=== PATIENT | female | born 1985 | race Caucasian/White ===

== ENCOUNTER 2017-08-23 12:35 | Emergency (ER) | payer BC ==
--- NOTE | 2017-08-23 12:46 | ER Document Report ---
ED Seizure - General Mode of Arrival: Stretcher Information source: Patient, Relative - , Friend - coworker <ARSALAN SALAS - Last Filed: 08/23/17 15:08> <SARAH MARTINS - Last Filed: 08/24/17 06:32> - General Chief Complaint: Seizure Stated Complaint: POSSIBLE SEIZURE Time Seen by Provider: 08/23/17 12:43 Notes: Patient is a 31-year-old female who presents to the emergency department today for seizure-like activity. The patient's coworkers report seeing the patient run by them on the way to the restroom. Coworkers state they heard the patient fall and witnessed what is described as tonic-clonic seizure activity. According to the patient's , the patient has had a brain tumor removed in the past but he was unable to remember specifics on the procedure. states the patient has had seizures in the past. states that at one point it was thought that her seizures were caused by "drinking too much water and lowering her sodium too much". History is limited. 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 Lives with: Family Family History: Reviewed & Not Pertinent Neurological Medical History: Reports: Hx Seizures Past Surgical History: Reports: Other - Hx of brain tumor removal <ARSALAN SALAS - Last Filed: 08/23/17 15:08> Review of Systems - Review of Systems -: Yes ROS unobtainable due to patient's medical condition - ROS given by facility staff members who witnessed seizure like activity Neurological/Psychological: See HPI, Seizure <ARSALAN SALAS - Last Filed: 08/23/17 15:08> Physical Exam <ARSALAN SALAS - Last Filed: 08/23/17 15:08> <SARAH MARTINS - Last Filed: 08/24/17 06:32> - Vital signs Vitals: Resp BP Pulse Ox 20 115/69 95 08/23/17 12:38 08/23/17 12:38 08/23/17 12:38 - Notes Notes: Physical Exam: General: Initially unresponsive during seizure-like activity, slowly became aroused and answered questions appropriately after 15-20 minutes after seizure like activity subsided. HEENT: Normocephalic. Atraumatic. PERRL. Extraocular movements intact. Oropharynx clear. No hematoma or head lacerations. Neck: Supple. Non-tender. Respiratory: No respiratory distress. Clear and equal breath sounds bilaterally. Cardiovascular: Tachycardic, regular rhythm. Abdominal: Normal Inspection. Non-tender. No distension. Normal Bowel Sounds. Back: Non-tender. No deformity or step off. Extremities: Moves all four extremities. Upper extremities: Normal inspection. Normal ROM. Lower extremities: Normal inspection. No edema. Normal ROM. Neurological: See general section, initially not oriented to person, place, or time, now alert and oriented x4. Psychological: Normal affect. Normal Mood. Skin: Warm. Dry. Normal color. (ARSALAN SALAS) Course - Laboratory Result Diagrams: 08/23/17 13:19 08/23/17 13:19 <ARSALAN SALAS - Last Filed: 08/23/17 15:08> - Laboratory Result Diagrams: 08/23/17 13:19 08/23/17 13:19 <SRAAH MARTINS - Last Filed: 08/24/17 06:32> - Re-evaluation Re-evalutation: 08/23/17 16:22 All labs within normal limits are nonsignificant mildly elevated TSH. Discussed CT and MRI with radiologist Dr. Alicea. No acute findings. Patient is returned back to baseline this time alert oriented have a long conversation with there are no acute distress. Will draw cortisol and free T3 and T4 due to mildly elevated TSH. Return precautions were provided will not place patient on any antiepileptics at this time. I discussed driving cautions and needs to be seen by neurologist prior to driving. (SARAH MARTINS) - Vital Signs Vital signs: Temp Pulse Resp BP Pulse Ox 98.3 F 96 17 123/84 99 08/23/17 16:39 08/23/17 16:39 08/23/17 16:39 08/23/17 16:39 08/23/17 16:39 - Laboratory Laboratory results interpreted by me: 08/23/17 08/23/17 08/23/17 12:35 13:19 13:19 Carbon Dioxide 21 L BUN 24 H POC Glucose 122 H AST 38 H TSH 5.80 H Urine Ascorbic Acid 08/23/17 08/23/17 13:19 14:08 Carbon Dioxide BUN POC Glucose 115 H AST TSH Urine Ascorbic Acid 40 H Discharge <ARSALAN SALAS - Last Filed: 08/23/17 15:08> <SARAH MARTINS - Last Filed: 08/24/17 06:32> - Discharge Clinical Impression: Seizure Disposition: HOME, SELF-CARE Instructions: New Seizure ([facility]) Additional Instructions: Please follow-up with neurology for evaluation. You should see a neurologist prior to driving. Forms: Return to Work Scribe Attestation: 08/24/17 06:28 I personally performed the services described documentation, reviewed and edited the documentation which was dictated to describe my presence, and it accurately records my words and actions. (SARAH MARTINS) Scribe Documentation - Scribe Written by Scribe:: Emanuel Ludwig, 08/23/2017 1517 acting as scribe for :: Garrett <ARSALAN SALAS - Last Filed: 08/23/17 15:08>
[2017-08-23] MEDS ORDERED: RINGERS SOLUTION,LACTATED 1,000 ML IV ONE (12:53)
[2017-08-23 13:42] LABS: ABSOLUTE BASOPHILS # (AUTO) 0.1 10^3/uL (0.0-0.2); ABSOLUTE EOSINOPHILS # (AUTO) 0.1 10^3/uL (0.0-0.6); ABSOLUTE LYMPHOCYTES (AUTO) 2.3 10^3/uL (0.5-4.7); ABSOLUTE MONOCYTES (AUTO) 0.7 10^3/uL (0.1-1.4); BASOPHILS % (AUTO) 0.9 % (0-2); HEMATOCRIT 42.6 % (36.0-47.0); HEMOGLOBIN 14.6 g/dL (12.0-15.5); LYMPHOCYTES % (AUTO) 25.3 % (13-45); MEAN CORPUSCULAR HEMOGLOBIN 30.9 pg (27.0-33.4); MEAN CORPUSCULAR HGB CONC 34.2 g/dL (32.0-36.0); MEAN CORPUSCULAR VOLUME 91 fl (80-97); MONOCYTES % (AUTO) 7.8 % (3-13); PLATELET COUNT 272 10^3/uL (150-450); RED BLOOD COUNT 4.71 10^6/uL (3.72-5.28); RED CELL DISTRIBUTION WIDTH 12.2 % (11.5-14.0); TOTAL CELLS COUNTED % (AUTO) 100 %; WHITE BLOOD COUNT 9.2 10^3/uL (4.0-10.5)
[2017-08-23 13:58] LABS: ALANINE AMINOTRANSFERASE 41 U/L (9-52); ALBUMIN 4.9 g/dL (3.5-5.0); ALKALINE PHOSPHATASE 47 U/L (38-126); ANION GAP 17 (5-19); ASPARTATE AMINO TRANSFERASE 38 U/L (14-36); BILIRUBIN,DIRECT 0.3 mg/dL (0.0-0.4); BILIRUBIN,TOTAL 0.4 mg/dL (0.2-1.3); BLOOD UREA NITROGEN 24 mg/dL (7-20); CALCIUM 10.2 mg/dL (8.4-10.2); CARBON DIOXIDE 21 mmol/L (22-30); CHLORIDE 100 mmol/L (98-107); GLUCOSE 104 mg/dL (75-110); POTASSIUM 4.3 mmol/L (3.6-5.0); SODIUM 138.3 mmol/L (137-145); TOTAL PROTEIN 8.2 g/dL (6.3-8.2)
--- NOTE | 2017-08-23 14:13 | RADIOLOGY REPORT (SQ) ---
EXAM DESCRIPTION: CT HEAD WITHOUT COMPLETED DATE/TIME: 08/23/2017 1:59 pm REASON FOR STUDY: seizure COMPARISON: None. TECHNIQUE: Axial images acquired through the brain without intravenous contrast. Images reviewed wi th bone, brain and subdural windows. Additional sagittal and coronal reconstructions were generated. Images stored on PACS. All CT scanners at this facility use dose modulation, iterative reconstruction, and/or weight based d osing when appropriate to reduce radiation dose to as low as reasonably achievable (ALARA). [facility]: Dose Right [facility]: CareDose [facility]: Dose Right [facility]: Teradose 4D [facility]: [employer] RADIATION DOSE: CT Rad equipment meets quality standard of care and radiation dose reduction techniq ues were employed. CTDIvol: 53.2 mGy. DLP: 1070 mGy-cm. mGy. LIMITATIONS: Artifact from hair pins FINDINGS: VENTRICLES: Normal size and contour. CEREBRUM: No CT evidence of acute large territory ischemic change, acute intracranial hemorrhage, mas s effect, or midline shift. Patient has an old left frontoparietal craniotomy. There is a 3 x 2.5 cm area of cortical and subcor tical white matter encephalomalacia in the left frontal lobe. CEREBELLUM: No masses. No hemorrhage. No alteration of density. No evidence for acute infarction. EXTRAAXIAL SPACES: No fluid collections. No masses. ORBITS AND GLOBE: No intra- or extraconal masses. Normal contour of globe without masses. CALVARIUM: No acute fracture. Old left frontoparietal craniotomy PARANASAL SINUSES: No fluid or mucosal thickening. SOFT TISSUES: No mass or hematoma. OTHER: No other significant finding. IMPRESSION: Old left frontal craniotomy with 3 x 2.5 cm area of cortical and subcortical white matte r left frontal encephalomalacia. No acute ischemic change. No acute intracranial hemorrhage, mass effect, or midline shift. Results discussed with Dr. Tucker in the emergency room EVIDENCE OF ACUTE STROKE: NO. COMMENT: Quality ID # [id number]: Final reports with documentation of one or more dose reduction techniques (e.g., Automated exposure control, adjustment of the mA and/or kV according to patient size, use of iterative reconstruction technique) TECHNICAL DOCUMENTATION: JOB ID: [id number] [employer]- All Rights Reserved Reading location - IP/workstation name: [facility]
[2017-08-23 14:54] LABS: APPEARANCE,URINE SLIGHTLY-CLOUDY; BILIRUBIN,URINE NEGATIVE (NEGATIVE); COLOR,URINE YELLOW; GLUCOSE, URINE NEGATIVE (NEGATIVE); KETONES,URINE NEGATIVE (NEGATIVE); LEUKOCYTE ESTERASE,URINE NEGATIVE (NEGATIVE); NITRITE,URINE NEGATIVE (NEGATIVE); PROTEIN,URINE NEGATIVE (NEGATIVE); URINE SPECIFIC GRAVITY 1.016; UROBILINOGEN,URINE NEGATIVE mg/dL (<2.0)
--- NOTE | 2017-08-23 16:22 | RADIOLOGY REPORT (SQ) ---
EXAM DESCRIPTION: MRI HEAD COMBO COMPLETED DATE/TIME: 08/23/2017 3:22 pm REASON FOR STUDY: seizure, hx of brain tumor COMPARISON: CT brain 08/23/2017 TECHNIQUE: Multiplanar imaging includes noncontrasted T1, T2, FLAIR, diffusion with ADC map and post gadolinium contrast T1 sequences. Images stored on PACS. CONTRAST TYPE AND DOSE: 10 mL Prohance. RENAL FUNCTION: GFR > 60. LIMITATIONS: None. FINDINGS: PITUITARY AND MIDLINE STRUCTURES: Unremarkable. CSF SPACES: Normal in size and contour. No hemorrhage. CEREBRUM: ANATOMY: Patient has an old left craniotomy, and a postoperative focus of encephalomalacia in the ant erior left frontal lobe cortex and subcortical white matter about 3 x 2.5 cm in size. There is minim al gliosis on FLAIR images deep to the operative cavity. No abnormal contrast enhancement. No hemor rhage. No mass effect. No midline shift. No diffusion-weighted signal abnormalities worrisome for acute ischemic change. Normal vascular flow voids. Pituitary fossa normal. POSTERIOR FOSSA: No signal alteration. No hemorrhage. No edema, masses, or mass effect. Internal frank tory canals, cerebellopontine angles, mastoids normal. No enhancing lesions. No abnormal enhancement post contrast. DIFFUSION IMAGING: Negative for acute or subacute infarction. ORBITS: No masses. Globes normal. PARANASAL SINUSES: No fluid levels. Mucosa normal. OTHER: No other significant finding. IMPRESSION: Postoperative encephalomalacia in the left frontal lobe. Otherwise unremarkable study. Findings discussed with Dr. Tucker in the emergency room EVIDENCE OF ACUTE STROKE: NO. TECHNICAL DOCUMENTATION: JOB ID: [id number] [employer]- All Rights Reserved Reading location - IP/workstation name: [email or web address]
[2017-08-23 16:41] VITALS: BP 123/84
[2017-08-24 07:21] LABS: FREE T3 4.13 pg/mL (2.77-5.27); FREE T4 (FREE THYROXINE) 1.07 ng/dL (0.78-2.19)
--- NOTE | 2017-08-24 07:47 | EKG REPORT ---
SEVERITY:- OTHERWISE NORMAL ECG - SINUS TACHYCARDIA : Confirmed by: Katherin Wilkes MD 24-Aug-2017 07:46:09
== END 2017-08-23 16:42 | disposition home or self-care (01) ==
LOC: ER 12:35
DX: R56.9 Unspecified convulsions (principal); R41.82 Altered mental status, unspecified; W19.XXXA Unspecified fall, initial encounter; Z98.890 Other specified postprocedural states
CPT/HCPCS: 99284; 96360; 36415; 84439; 82962; 83735; 84443; 84703; 85025; 80053; 81001; 84481; 70553; 70450; 93005; 93010; J7120

== ENCOUNTER 2017-10-11 14:17 | Emergency (ER) | payer OTHER, BC ==
[2017-10-11] MEDS ORDERED: LORAZEPAM INJ 2 MG/1 ML VIAL IM ONE (14:40)
[2017-10-11 14:57] LABS: ABSOLUTE BASOPHILS # (AUTO) 0.1 10^3/uL (0.0-0.2); ABSOLUTE EOSINOPHILS # (AUTO) 0.2 10^3/uL (0.0-0.6); ABSOLUTE MONOCYTES (AUTO) 1.3 10^3/uL (0.1-1.4); ABSOLUTE NEUT (AUTO) 8.6 10^3/uL (1.7-8.2); BASOPHILS % (AUTO) 0.8 % (0-2); EOSINOPHILS % (AUTO) 1.2 % (0-6); HEMOGLOBIN 14.8 g/dL (12.0-15.5); LYMPHOCYTES % (AUTO) 36.8 % (13-45); MEAN CORPUSCULAR HEMOGLOBIN 31.2 pg (27.0-33.4); MEAN CORPUSCULAR HGB CONC 33.5 g/dL (32.0-36.0); MEAN CORPUSCULAR VOLUME 93 fl (80-97); PLATELET COUNT 449 10^3/uL (150-450); RED BLOOD COUNT 4.72 10^6/uL (3.72-5.28); RED CELL DISTRIBUTION WIDTH 12.6 % (11.5-14.0); SEGMENTED NEUTROPHILS % (AUTO) 53.2 % (42-78); TOTAL CELLS COUNTED % (AUTO) 100 %; WHITE BLOOD COUNT 16.2 10^3/uL (4.0-10.5)
[2017-10-11 15:21] LABS: BLOOD UREA NITROGEN 19 mg/dL (7-20); CALCIUM 9.8 mg/dL (8.4-10.2); GLUCOSE 124 mg/dL (75-110); POTASSIUM 4.1 mmol/L (3.6-5.0)
[2017-10-11 15:27] LABS: CARBON DIOXIDE 15 mmol/L (22-30); CHLORIDE 100 mmol/L (98-107); SODIUM 141.2 mmol/L (137-145)
--- NOTE | 2017-10-11 15:57 | RADIOLOGY REPORT (SQ) ---
EXAM DESCRIPTION: CT HEAD WITHOUT COMPLETED DATE/TIME: 10/11/2017 3:44 pm REASON FOR STUDY: fall COMPARISON: MRI brain 08/23/2017 CT brain 08/23/2017 TECHNIQUE: Axial images acquired through the brain without intravenous contrast. Images reviewed wi th bone, brain and subdural windows. Additional sagittal and coronal reconstructions were generated. Images stored on PACS. All CT scanners at this facility use dose modulation, iterative reconstruction, and/or weight based d osing when appropriate to reduce radiation dose to as low as reasonably achievable (ALARA). [facility]: Dose Right [facility]: CareDose [facility]: Dose Right [facility]: Teradose 4D [facility]: [employer]AP RADIATION DOSE: 53 mGy. LIMITATIONS: None. FINDINGS: VENTRICLES: Normal size and contour. CEREBRUM: No CT evidence of acute large territory ischemic change, acute intracranial hemorrhage, mas s effect, or midline shift. Patient has an old left frontoparietal convexity with a stable 3 x 2.5 c m area of encephalomalacia over the left frontal cortex and subcortical white matter. CEREBELLUM: No masses. No hemorrhage. No alteration of density. No evidence for acute infarction. EXTRAAXIAL SPACES: No fluid collections. No masses. ORBITS AND GLOBE: No intra- or extraconal masses. Normal contour of globe without masses. CALVARIUM: No fracture. PARANASAL SINUSES: No fluid or mucosal thickening. SOFT TISSUES: Right parietal scalp hematoma without underlying skull fracture or acute intracranial h emorrhage OTHER: No other significant finding. IMPRESSION: Right parietal scalp hematoma without underlying skull fracture or acute intracranial he morrhage Old craniotomy with left frontal encephalomalacia, stable EVIDENCE OF ACUTE STROKE: NO. COMMENT: Quality ID # [id number]: Final reports with documentation of one or more dose reduction techniques (e.g., Automated exposure control, adjustment of the mA and/or kV according to patient size, use of iterative reconstruction technique) TECHNICAL DOCUMENTATION: JOB ID: [id number] [employer]- All Rights Reserved Reading location - IP/workstation name: [email or web address]
--- NOTE | 2017-10-11 15:59 | ER Document Report ---
ED General - General Chief Complaint: Seizure Stated Complaint: SEIZURE Time Seen by Provider: 10/11/17 14:29 Mode of Arrival: Ambulatory Information source: Patient, [facility] Records Notes: 32-year-old female with history of one previous seizure was working today when she was found down, unconscious and bleeding from the head. Mild shaking which resolved quickly before medication. Patient did become confused, mildly combative. TRAVEL OUTSIDE OF THE [place] IN LAST 30 DAYS: No - HPI Onset: Just prior to arrival Onset/Duration: Sudden Associated symptoms: None Exacerbated by: Denies Relieved by: Denies Similar symptoms previously: Yes Recently seen / treated by doctor: Yes - Related Data Allergies/Adverse Reactions: No Known Allergies Allergy (Verified 10/11/17 14:46) Past Medical History - General Information source: Patient, [facility] Records - Social History Smoking Status: Never Smoker Frequency of alcohol use: None Drug Abuse: None Lives with: Spouse/Significant other Family History: Reviewed & Not Pertinent Patient has suicidal ideation: No Patient has homicidal ideation: No Neurological Medical History: Reports: Hx Seizures Renal/ Medical History: Denies: Hx Peritoneal Dialysis Past Surgical History: Reports: Other - Hx of brain tumor removal Review of Systems - Review of Systems Notes: REVIEW OF SYSTEMS: CONSTITUTIONAL : Denies fever, chills, or sweats. Denies recent illness. Denies weight loss, recent hospitalizations. EENT: Denies visual changes, eye pain. Denies nasal or sinus congestion or discharge. Denies sore throat, oral lesions, difficulty swallowing. CARDIOVASCULAR: Denies chest pain. Denies palpitations. Denies lower extremity edema. RESPIRATORY: Denies cough, cold, or chest congestion. Denies shortness of breath, wheezing. GASTROINTESTINAL: Denies abdominal pain or distention. Denies nausea, vomiting , or diarrhea. Denies blood in vomitus, stools, or per rectum. Denies black, tarry stools. Denies constipation. GENITOURINARY: Denies difficulty urinating, painful urination, frequency, blood in urine, or vaginal discharge. MUSCULOSKELETAL: Denies back or neck pain or stiffness. Denies joint pain or swelling. SKIN: Denies rash, lesions or sores. HEMATOLOGIC : Denies easy bruising or bleeding. LYMPHATIC: Denies swollen glands. NEUROLOGICAL: Denies confusion or altered mental status. Denies passing out or loss of consciousness. Denies dizziness or lightheadedness. Denies weakness or paralysis. Denies problems difficulty with ambulation, slurred speech. Denies sensory loss, numbness, or tingling. PSYCHIATRIC: Denies anxiety or stress. Denies depression, suicidal ideation, or homicidal ideation. Denies visual or auditory hallucinations. Physical Exam - Vital signs Vitals: Pulse BP Pulse Ox 134 H 144/89 H 93 10/11/17 14:27 10/11/17 14:27 10/11/17 14:27 Interpretation: Hypertensive, Tachycardic - Notes Notes: PHYSICAL EXAMINATION: GENERAL: Agitated, confused c collar in place. HEAD: 5 cm laceration to the right parietal scalp EYES: Pupils equal round and reactive to light, extraocular movements intact, sclera anicteric, conjunctiva are normal. ENT: Nares patent, oropharynx clear without exudates. Moist mucous membranes. No hemanotympanum . No blood in nares. No dental fracture NECK: Normal range of motion, supple without lymphadenopathy. Trachea midline LUNGS: Breath sounds clear to auscultation bilaterally and equal. No wheezes rales or rhonchi. HEART: Tachycardic, regular rhythm without murmurs. Pulses intact all throughout. ABDOMEN: Soft, nontender, nondistended abdomen. No guarding, no rebound. No masses appreciated. Musculoskeletal: Normal range of motion, no pitting or edema. No cyanosis. Hip non tender, stable. NEUROLOGICAL: Initially neuro exam unable to be performed secondary to patient' s confusion. Repeat exam shows cranial nerves grossly intact. Normal speech, normal gait. Normal sensory, motor, and reflex exams. PSYCH: Confused SKIN: 5 cm parietal scalp laceration Course - Re-evaluation Re-evalutation: Laboratory 10/11/17 10/11/17 14:40 14:40 WBC 16.2 H RBC 4.72 Hgb 14.8 Hct 44.0 MCV 93 MCH 31.2 MCHC 33.5 RDW 12.6 Plt Count 449 Seg Neutrophils % 53.2 Lymphocytes % 36.8 Monocytes % 8.0 Eosinophils % 1.2 Basophils % 0.8 Absolute Neutrophils 8.6 H Absolute Lymphocytes 6.0 H Absolute Monocytes 1.3 Absolute Eosinophils 0.2 Absolute Basophils 0.1 Sodium 141.2 Potassium 4.1 Chloride 100 Carbon Dioxide 15 L Anion Gap 26 H BUN 19 Creatinine 0.84 Est GFR ( Amer) > 60 Est GFR (Non-Af Amer) > 60 Glucose 124 H Calcium 9.8 Beta HCG, Quant < 2.39 Total Beta HCG NEGATIVE Head CT 10/11/17 14:40 IMPRESSION: Right parietal scalp hematoma without underlying skull fracture or acute intracranial hemorrhage Old craniotomy with left frontal encephalomalacia, stable EVIDENCE OF ACUTE STROKE: NO. 10/12/17 09:39 32-year-old female who was at work when she was found down, unconscious with head injury. She was incontinent of urine. Patient awoke independently without intervention and was mildly agitated. 2 mg of IM Ativan was administered. Exam significant for a 5 cm laceration to her scalp. Patient quickly returned to baseline. CAT scan was obtained and showed no intracranial hemorrhage but a large hematoma. Laceration repair was performed with jack. 5 jack were placed after thorough irrigation of the wound. I did speak to the patient and her at length about my concern for her driving. We did discuss medication which she states her doctor told her she does not need at this time. She states she believes this is secondary to her waiting too long to eat and working too many days consistently. I did advised her to not return to work tomorrow and that she should be seen by her physician before returning to work. 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 Patient provided the opportunity to ask questions, and express concerns. Discharge instructions discussed. Patient is agreeable with discharge home. Return indications explained and discussed with the patient who displays understanding. Patient encouraged to return to the emergency department immediately with any concerns. 10/12/17 09:41 10/12/17 09:43 - Vital Signs Vital signs: Temp Pulse Resp BP Pulse Ox 122 H 23 H 127/89 H 98 10/11/17 15:12 10/11/17 15:35 10/11/17 15:46 10/11/17 15:12 - Laboratory Result Diagrams: 10/11/17 14:40 10/11/17 14:40 Laboratory results interpreted by me: 10/11/17 10/11/17 14:40 14:40 WBC 16.2 H Absolute Neutrophils 8.6 H Absolute Lymphocytes 6.0 H Carbon Dioxide 15 L Anion Gap 26 H Glucose 124 H - Diagnostic Test Radiology reviewed: Image reviewed, Reports reviewed - EKG Interpretation by Me Rate: Tachycardia Procedures - Laceration/Wound Repair Right Head Time completed: 14:30 Wound length (cm): 5 Wound's Depth, Shape: Linear Laceration pre-procedure: Shur-Clens applied Volume Anesthetic (mLs): 0 Wound explored: Clean, No foreign body removed Irrigated w/ Saline (mLs): 1,000 Wound Debrided: Minimal Wound Repaired With: Jack - 5 jack placed Post-procedure wound care: Sterile dressing applied Complications: No Discharge - Discharge Clinical Impression: Seizure Scalp laceration Qualifiers: Encounter type: initial encounter Qualified Code(s): S01.01XA - Laceration without foreign body of scalp, initial encounter Head injury due to trauma Qualifiers: Encounter type: initial encounter Qualified Code(s): S09.90XA - Unspecified injury of head, initial encounter Disposition: HOME, SELF-CARE Instructions: Antibiotic Ointment Protection ([facility]), Laceration Care ([facility]), New Seizure ([facility]) Additional Instructions: Remove jack in [address] until seen by pcp.
[2017-10-11 16:00] VITALS: BP 127/89
[2017-10-11 16:08] LABS: ANION GAP 26 (5-19)
== END 2017-10-11 16:04 | disposition home or self-care (01) ==
LOC: ER 14:17
PROC: 0HQ0XZZ Repair Scalp Skin, External Approach (ICD-10-PCS; principal; 2017-10-11)
DX: S01.01XA Laceration without foreign body of scalp, initial encounter (principal); S09.90XA Unspecified injury of head, initial encounter; R56.9 Unspecified convulsions; W19.XXXA Unspecified fall, initial encounter
CPT/HCPCS: 99284; 96372; 36415; 82962; 84702; 85025; 80048; 70450; 12002; J2060

== ENCOUNTER 2019-05-16 18:47 | Emergency (ER) | payer BC, OTHER ==
[2019-05-16] MEDS ORDERED: LIDOCAINE 4%/TETRACAINE 0.5%/EPI 0.18% 5 ML TOPICAL SOLN TOP ONE (19:26)
--- NOTE | 2019-05-16 19:28 | ER Document Report ---
ED General - General Chief Complaint: Seizure Stated Complaint: POSSIBLE SEIZURE Time Seen by Provider: 05/16/19 18:48 TRAVEL OUTSIDE OF THE [place] IN LAST 30 DAYS: No - HPI Notes: Patient is a 33-year-old female who presents to the emergency department for evaluation. 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 She has a known history of seizures. She is taking Tegretol 100 mg daily. This is only for the last month. She supposed to follow-up with neurology. She denies any recent head injuries. She denied any prodromal symptoms. She does admit to being under increased stress, has not eaten very much today. She states that sometimes that contributes to her seizures. She states her last tetanus shot was within the year. She denies any significant pain or complaints at this time, besides a mild headache in the right side of her head. She was incontinent of urine. - Related Data Allergies/Adverse Reactions: No Known Allergies Allergy (Verified 10/11/17 14:46) Home Medications: Tegretol 100 mg daily Past Medical History - General Information source: Patient - Social History Smoking Status: Never Smoker Family History: Reviewed & Not Pertinent Neurological Medical History: Reports: Hx Seizures Renal/ Medical History: Denies: Hx Peritoneal Dialysis Past Surgical History: Reports: Hx Neurologic Surgery - Removal of brain tumor Review of Systems - Review of Systems Skin: See HPI Neurological/Psychological: See HPI -: Yes All other systems reviewed and negative Physical Exam - Notes Notes: This is a very pleasant 33-year-old female who appears her stated age in no acute distress. Initially I saw her in postictal state, very confused, but moving all 4 extremity spontaneously. Repeat evaluation was after CT scan. Head is normocephalic. She has a right parietal scalp hematoma with stellate laceration, avulsion of scalp skin noted to the central aspect of the lesion. No active bleeding, no clear foreign body. Pupils are equal round, reactive to light. Onychosis moist. Uvula is midline. Heart is regular rate and rhythm, lungs are crusting bilaterally. Abdomen soft, nontender, active bowel sounds. Extremities without cyanosis or clubbing. Patient is awake and alert, moves all 4 extremity spontaneously. No gross facial asymmetry. Course - Re-evaluation Re-evalutation: 05/16/19 19:27 Patient presents emergency department for evaluation. She was placed in a c- collar before being moved. She had CT scan of the head and neck. Preliminary read of the cervical spine CT by myself showed no signs of fracture or misalignment. Patient was back to neurological baseline I did remove the collar. In midline stabilization was maintained and she had no midline tenderness or step-off. No paraspinal musculature tenderness appreciated. Full range of motion did not elicit pain. Her C-spine was cleared and the collar was removed. Attention now being turned to the scalp laceration. Is been cleansed, let placed. I will place jack to approximate the wound, care plan was discussed with the patient. She is stable at this time, we will continue to monitor. 05/16/19 20:22 CT scan of the head and neck were ordered and found to be unremarkable. Stellate wound was approximated with 2 jack. No active bleeding. Please see separate procedure note. Will discharge patient home. She is to follow-up with primary care for staple remover in 7 days, follow-up with neurology as well. Return to the ED with worsening. Procedures - Laceration/Wound Repair Right Head Wound length (cm): 4 Wound's Depth, Shape: Superficial, Irregular Laceration pre-procedure: Chloraprep applied Wound explored: Clean, No foreign body removed Wound Repaired With: Jack - 2 Discharge - Discharge Clinical Impression: Seizure Scalp laceration Qualifiers: Encounter type: initial encounter Qualified Code(s): S01.01XA - Laceration without foreign body of scalp, initial encounter Condition: Stable Disposition: HOME, SELF-CARE Instructions: Antibiotic Ointment Protection ([facility]), Laceration Care ([facility]), Seizure, Known Epileptic ([facility]) Additional Instructions: Follow-up with neurology and primary care next week. Have jack removed in 5 to 7 days. Keep wound clean with soap and water. Return to the emergency department worsening or new concerning symptoms of any sort.
--- NOTE | 2019-05-16 19:30 | RADIOLOGY REPORT (SQ) ---
EXAM DESCRIPTION: CT HEAD WITHOUT COMPLETED DATE/TIME: 05/16/2019 6:11 pm REASON FOR STUDY: head injury, altered mental status COMPARISON: 10/11/2017. TECHNIQUE: Axial images acquired through the brain without intravenous contrast. Images reviewed wi th bone, brain and subdural windows. Additional sagittal and coronal reconstructions were generated. Images stored on PACS. All CT scanners at this facility use dose modulation, iterative reconstruction, and/or weight based d osing when appropriate to reduce radiation dose to as low as reasonably achievable (ALARA). [facility]: Dose Right [facility]: CareDose [facility]: Dose Right [facility]: Teradose 4D [facility]: [employer] RADIATION DOSE: mGy. LIMITATIONS: None. FINDINGS: VENTRICLES: Normal size and contour. CEREBRUM: No masses. No hemorrhage. No midline shift. No evidence for acute infarction. 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 Normal clark-white matter differentiat ion. CEREBELLUM: No masses. No hemorrhage. No alteration of density. No evidence for acute infarction. EXTRAAXIAL SPACES: No fluid collections. No masses. ORBITS AND GLOBE: No intra- or extraconal masses. Normal contour of globe without masses. CALVARIUM: No fracture. PARANASAL SINUSES: No fluid or mucosal thickening. SOFT TISSUES: No mass or hematoma. OTHER: No other significant finding. IMPRESSION: No significant interval change. No acute intracranial hemorrhage, mass, or evidence of acute territorial infarct. EVIDENCE OF ACUTE STROKE: NO. COMMENT: Quality ID # 436: Final reports with documentation of one or more dose reduction techniques (e.g., Automated exposure control, adjustment of the mA and/or kV according to patient size, use of iterative reconstruction technique) TECHNICAL DOCUMENTATION: JOB ID: [id number] 2010 [employer]- All Rights Reserved Reading location - IP/workstation name: [email or web address]
--- NOTE | 2019-05-16 19:31 | RADIOLOGY REPORT (SQ) ---
EXAM DESCRIPTION: CT CERVICAL SPINE WITHOUT COMPLETED DATE/TIME: 05/16/2019 6:11 pm REASON FOR STUDY: head injury, AMS COMPARISON: None. TECHNIQUE: Axial images acquired through the cervical spine without intravenous contrast. Images re viewed with lung, soft tissue and bone windows. Reconstructed coronal and sagittal MPR images review ed. Images stored on PACS. All CT scanners at this facility use dose modulation, iterative reconstruction, and/or weight based d osing when appropriate to reduce radiation dose to as low as reasonably achievable (ALARA). [facility]: Dose Right [facility]: CareDose [facility]: Dose Right [facility]: Teradose 4D [facility]: [employer] RADIATION DOSE: CT Rad equipment meets quality standard of care and radiation dose reduction techniq ues were employed. CTDIvol: 19.5 - 53.2 mGy. DLP: 1466 mGy-cm. mGy. LIMITATIONS: None. FINDINGS: ALIGNMENT: Anatomic. MINERALIZATION: Normal. VERTEBRAL BODIES: No fractures or dislocation. DISCS: No significant disc disease. FACETS, LATERAL MASSES, POSTERIOR ELEMENTS: No fractures. No dislocation. No acute findings. HARDWARE: None in the spine. VISUALIZED RIBS: No fractures. LUNG APICES AND SOFT TISSUES: No significant or acute findings. OTHER: No other significant finding. IMPRESSION: NO ACUTE OR SIGNIFICANT FINDINGS IN THE CERVICAL SPINE. TECHNICAL DOCUMENTATION: JOB ID: [id number] Quality ID # [id number]: Final reports with documentation of one or more dose reduction techniques (e.g., Au tomated exposure control, adjustment of the mA and/or kV according to patient size, use of iterative reconstruction technique) 2010 [employer]- All Rights Reserved Reading location - IP/workstation name: [email or web address]
[2019-05-16 20:38] VITALS: BP 118/82
== END 2019-05-16 20:38 | disposition home or self-care (01) ==
LOC: ER 18:47
PROC: 0HQ0XZZ Repair Scalp Skin, External Approach (ICD-10-PCS; principal; 2019-05-16)
DX: R56.9 Unspecified convulsions (principal); S01.01XA Laceration without foreign body of scalp, initial encounter; R51 Headache; N39.41 Urge incontinence; X58.XXXA Exposure to other specified factors, initial encounter; Z79.899 Other long term (current) drug therapy
CPT/HCPCS: 12002; 99284; 70450; 72125; J3490